=== PATIENT | female | born 1970 | race Caucasian/White ===

== ENCOUNTER → 2016-06-06 | Outpatient (CLI) | payer OTHER ==
[~2016-06-06] MED LIST: /ADVA50050; /ADVA50050 INH; /CLON1TA OR; /DULO30CA; /HALO5TAB OR; /METO25TAB PO; ADV250INH INH; ALBU17IN INH; ALBU17IN2 INH; ALLE10TA2 PO; AMLO10TA PO; AMLO5TAB2 PO; ATOR40TA PO; BUSP10TA2 OR; CITA20TA4 PO; CLON0.2T PO; COLC1TAB13 PO; COLC1TAB5 PO; DEPA500T OR; DRIS50002 PO; ESTR625TA PO; EXCETAB; EXCETAB OR; EXCETAB80 PO; FIOR1CAP PO; FURO20TA2; FURO20TA2 PO; IMIT100T; INDO25CA PO; INDO50CA PO; LASI20TA; LISI40TAB PO; LOSA100T36 PO; METO50TA2 PO; MOTR200T44 PO; NORCOTAB PO; OLAN20TA PO; OMEP40CA2 PO; OXYC1TAB23 PO; PANT40TA2 PO; PERCOCET PO; PROZ20CA OR; RANI15TA PO; SERO200T2 PO; SERT50TA PO; SING10TA31; TOPA100T8 PO; TOPI100T; TOPI200T; TRAZ100T OR; TRAZ100T4 PO; TUMS500C PO; TYLE325T5 PO; VENL37.5
[2016-06-06 09:09] LABS: BASO % 0.6 % (0.0-1.0); EOS # 0.2 K/mm3 (0.0-0.50); EOS % 3.6 % (0.0-3.0); LYMPH # 2.1 K/mm3 (1.5-4.5); LYMPH % 41.5 % (24.0-44.0); MEAN CORPUSCULAR HEMOGLOBIN 32.8 pg (27.0-33.0); MEAN CORPUSCULAR HGB CONC 34.2 g/dl (32.0-36.5); MEAN CORPUSCULAR VOLUME 95.9 fl (80.0-96.0); MONO # 0.3 K/mm3 (0.0-0.8); MONO % 5.2 % (0.0-5.0); NEUTROPHILS # 2.4 K/mm3 (1.8-7.7); RED CELL DISTRIBUTION WIDTH 12.5 % (11.5-14.5); WHITE BLOOD COUNT 5.1 K/mm3 (4.0-10.0)
[2016-06-06 09:38] LABS: VITAMIN B12 LEVEL 734 PG/ML
[2016-06-06 09:39] LABS: FOLATE > 24.0 NG/ML
[2016-06-06 09:43] LABS: ALBUMIN 4.1 GM/DL (3.2-5.2); ALBUMIN/GLOBULIN RATIO 1.08 (1.00-1.93); ALKALINE PHOSPHATASE 131 U/L (45-117); ALT/SGPT 23 U/L (12-78); ANION GAP 11 MEQ/L (8-16); AST/SGOT 17 U/L (15-37); BILIRUBIN,TOTAL 0.4 MG/DL (0.2-1.0); BLOOD UREA NITROGEN 17 MG/DL (7-18); CALCIUM LEVEL 9.4 MG/DL (8.5-10.1); CARBON DIOXIDE LEVEL 26 MEQ/L (21-32); CHLORIDE LEVEL 95 MEQ/L (98-107); CREATININE FOR GFR 1.16 MG/DL (0.55-1.02); FERRITIN 71 NG/ML (8-252); GLOMERULAR FILTRATION RATE 53.8 (>58); GLUCOSE, FASTING 85 MG/DL (70-105); POTASSIUM SERUM 3.7 MEQ/L (3.5-5.1); SODIUM LEVEL 132 MEQ/L (136-145); TOTAL PROTEIN 7.9 GM/DL (6.4-8.2)
== END ==
LOC: M LAB 08:19
PROVIDERS: ATTEND Physician Assistant Medical
DX: R42 Dizziness and giddiness (principal)

== ENCOUNTER → 2016-07-02 | Outpatient (CLI) | payer OTHER ==
[2016-07-02 11:46] LABS: BLOOD UREA NITROGEN 19 MG/DL (7-18); CREATININE FOR GFR 0.93 MG/DL (0.55-1.02); GLOMERULAR FILTRATION RATE > 60.0 (>58)
== END ==
LOC: M LAB 10:45
PROVIDERS: ATTEND Nurse Practitioner Family
DX: M54.16 Radiculopathy, lumbar region (principal)

== ENCOUNTER → 2016-09-09 | Outpatient (CLI) | payer MEDICAID ==
--- NOTE | 2016-09-09 17:24 | REP ---
Clinical: Chronic headache . Comparison: 07/25/2015 . Findings: The ventricles, sulci, and cisterns are normal in position and appearance. Orourke-white differentiation is maintained. No acute intracranial hemorrhage, mass/mass effect, pathology or trauma/injury. No evidence for acute infarction. No extra-axial fluid collection. Calvarium is intact. Paranasal sinuses and mastoid air cells are clear. Impression: Normal noncontrast head CT. No evidence for acute intracranial pathology or trauma/injury. Signed by Sebastián Zayas MD 09/09/2016 05:15 P
== END ==
LOC: M RAD 16:53
PROVIDERS: ATTEND Internal Medicine Cardiovascular Disease
DX: G44.52 New daily persistent headache (NDPH) (principal); I25.10 Atherosclerotic heart disease of native coronary artery without angina pectoris

== ENCOUNTER 2016-10-14 01:16 | Emergency (ER) | payer MEDICAID, OTHER ==
[~2016-10-14] VITALS: Ht 177.8 cm; Wt 92.7 kg
[~2016-10-14 01:16] MED LIST changes: -ATOR40TA PO; +ATOR40TA75 PO; +COLC1TAB14 PO; -COLC1TAB5 PO; -METO50TA2 PO; +METO50TA7 PO; +TOPA100T12 PO; -TOPA100T8 PO; +TRAZ-136 PO; -TRAZ100T4 PO
[2016-10-14] MEDS ORDERED: VICO10TA11 PO (01:43)
[2016-10-14] MEDS ORDERED: KETOROLAC 60 MG/2 ML VIAL (J1885) IM ONE (03:15)
[2016-10-14 04:16] VITALS: BP 188/108
--- NOTE | 2016-10-14 09:18 | REP ---
Left foot complete: 10/14/2016. Clinical history: Trauma. Findings: Four views provided. There is a small plantar calcaneal spur. There are degenerative changes at the first MTP joint and IP joints representing some minor arthritis. The tarsal bones and their articulations show minor degenerative changes at some of the dorsal articulations, particularly the talonavicular joint on the lateral view. There is a small os trigonum posterior to the talus. Talonavicular and calcaneocuboid joints otherwise unremarkable. No visible or displaced fractures. There is a dorsal spur at the neck of the talus. Impression: 1. Minor degenerative changes as described with heel spur, no known fracture. Signed by Ean Faustin MD 10/14/2016 09:15 P
--- NOTE | 2016-10-14 09:43 | REP ---
LEFT ANKLE COMPLETE: 10/14/2016. CLINICAL HISTORY: Trauma. Four views of the ankle show the mortise joint symmetric and preserved. There are some minor degenerative changes at the inferior tip of the medial malleolus. No talar dome osteochondral defect. No visible or displaced fracture or avulsion of the tibia or fibula. Subtalar joints intact. There is an os trigonum posterior to the talus as a normal finding. Heel spurs are noted. Minor degenerative changes dorsal aspect of the neck of the talus and the talonavicular joint. IMPRESSION: 1. Soft-tissue swelling about the ankle, but no visible or displaced fracture, avulsion, disruption of the mortise joint or other acute finding. There are some degenerative changes at the ankle and heel spurs noted. Signed by Ean Faustin MD 10/14/2016 09:15 P
== END 2016-10-14 04:18 | disposition home or self-care (01) ==
LOC: M ED 01:16
DX: S90.32XA Contusion of left foot, initial encounter (principal); W22.8XXA Striking against or struck by other objects, initial encounter; Y92.099 Unspecified place in other non-institutional residence as the place of occurrence of the external cause; Y93.9 Activity, unspecified; Y99.9 Unspecified external cause status; I10 Essential (primary) hypertension; K21.9 Gastro-esophageal reflux disease without esophagitis; G89.29 Other chronic pain; F17.200 Nicotine dependence, unspecified, uncomplicated; M19.072 Primary osteoarthritis, left ankle and foot; M77.32 Calcaneal spur, left foot; Z79.82 Long term (current) use of aspirin; Z79.899 Other long term (current) drug therapy; Z91.89 Other specified personal risk factors, not elsewhere classified; Z88.8 Allergy status to other drugs, medicaments and biological substances; Z88.4 Allergy status to anesthetic agent
CPT/HCPCS: 73610; 73630; 96372; 99283; J1885

== ENCOUNTER 2016-10-28 01:49 | Emergency (ER) | payer OTHER ==
[~2016-10-28] VITALS: Ht 177.8 cm; Wt 92.7 kg
[~2016-10-28 01:49] MED LIST changes: +VICO10TA11 PO
[2016-10-28] MEDS ORDERED: MORPHINE 4 MG/ML 1ML SYRINGE IV ONE (02:30)
[2016-10-28 02:38] LABS: BASO # 0.1 K/mm3 (0.0-0.2); EOS # 0.3 K/mm3 (0.0-0.50); EOS % 5.6 % (0.0-3.0); LARGE UNSTAINED CELL # 0.1 K/mm3 (0.0-0.4); LARGE UNSTAINED CELL % 2.1 % (0.0-4.0); LYMPH # 2.7 K/mm3 (1.5-4.5); LYMPH % 47.5 % (24.0-44.0); MEAN CORPUSCULAR HEMOGLOBIN 33.2 pg (27.0-33.0); MEAN CORPUSCULAR HGB CONC 33.8 g/dl (32.0-36.5); MEAN CORPUSCULAR VOLUME 98.2 fl (80.0-96.0); MONO # 0.3 K/mm3 (0.0-0.8); MONO % 5.9 % (0.0-5.0); NEUTROPHILS # 2.1 K/mm3 (1.8-7.7); NEUTROPHILS % 36.9 % (36.0-66.0); PLATELET COUNT, AUTOMATED 263 k/mm3 (150-450); RED CELL DISTRIBUTION WIDTH 12.5 % (11.5-14.5); WHITE BLOOD COUNT 5.6 K/mm3 (4.0-10.0)
[2016-10-28] MEDS ORDERED: LOSA100T36 PO (02:57)
[2016-10-28] MEDS ORDERED: ALBU17IN INH (02:57)
[2016-10-28] MEDS ORDERED: LISI40TAB PO (02:57)
[2016-10-28] MEDS ORDERED: METO1TAB87 PO (02:57)
[2016-10-28] MEDS ORDERED: SERO1TAB PO (02:57)
[2016-10-28] MEDS ORDERED: ZYRT10CA PO (02:57)
[2016-10-28] MEDS ORDERED: SING10TA32 PO (02:57)
[2016-10-28] MEDS ORDERED: LIPI20TA PO (02:57)
[2016-10-28] MEDS ORDERED: HYDR-3719 PO (02:57)
[2016-10-28] MEDS ORDERED: AMLO10TA PO (02:57)
[2016-10-28] MEDS ORDERED: ASPI81TA85 PO (03:00)
[2016-10-28] MEDS ORDERED: LASI20TA PO (03:00)
[2016-10-28] MEDS ORDERED: PLAV1TAB2 PO (03:00)
[2016-10-28] MEDS ORDERED: VITA1CAP40 PO (03:00)
[2016-10-28] MEDS ORDERED: ZOLO100T PO (03:00)
[2016-10-28] MEDS ORDERED: OMEP40CA2 PO (03:00)
[2016-10-28 03:13] LABS: ANION GAP 7 MEQ/L (8-16); BLOOD UREA NITROGEN 12 MG/DL (7-18); CALCIUM LEVEL 8.9 MG/DL (8.5-10.1); CARBON DIOXIDE LEVEL 24 MEQ/L (21-32); CHLORIDE LEVEL 111 MEQ/L (98-107); CREATININE FOR GFR 0.87 MG/DL (0.55-1.02); GLOMERULAR FILTRATION RATE > 60.0 (>58); GLUCOSE, FASTING 108 MG/DL (70-105); POTASSIUM SERUM 3.7 MEQ/L (3.5-5.1); SODIUM LEVEL 142 MEQ/L (136-145)
[2016-10-28] MEDS ORDERED: HYDROmorphone HCL 1 MG/ML SYRINGE (J1170) IV ONE (03:15)
[2016-10-28] MEDS ORDERED: hydrALAZINE INJ 20 MG/ML VIAL IV STA (03:35)
[2016-10-28] MEDS ORDERED: NITROGLYCERIN 2% OINT 1 GM *U/D* PKT TOP ONE (04:00)
[2016-10-28 05:11] VITALS: BP 172/106
--- NOTE | 2016-10-28 07:49 | REP ---
Portable chest, 03:50 a.m., single AP view, patient sitting: Comparison is 03/14/2016. The lung lyon are clear. The cardiac size is normal. The deion, mediastinum, and bony thorax are unremarkable. Impression: Negative portable chest. There is no interval change. No Signed by Zeke Zambrano MD 10/28/2016 07:40 A
--- NOTE | 2016-10-28 20:27 | ECGEPIP ---
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
== END 2016-10-28 05:24 | disposition short-term general hospital (02) ==
LOC: M ED 01:49
DX: I20.0 Unstable angina (principal); R07.9 Chest pain, unspecified; R94.31 Abnormal electrocardiogram [ECG] [EKG]; I51.9 Heart disease, unspecified; I10 Essential (primary) hypertension; F41.9 Anxiety disorder, unspecified; F32.9 Major depressive disorder, single episode, unspecified; G43.909 Migraine, unspecified, not intractable, without status migrainosus; M54.5 Low back pain; Z95.5 Presence of coronary angioplasty implant and graft; F17.200 Nicotine dependence, unspecified, uncomplicated; Z82.49 Family history of ischemic heart disease and other diseases of the circulatory system; Z79.82 Long term (current) use of aspirin; Z79.899 Other long term (current) drug therapy; Z91.040 Latex allergy status; Z88.0 Allergy status to penicillin; Z88.8 Allergy status to other drugs, medicaments and biological substances
CPT/HCPCS: 71010; 80048; 82550; 82553; 83880; 85025; 93000; 93041; 94760; 96374; 96375; 99285; J1170

== ENCOUNTER → 2016-11-21 | Outpatient (CLI) | payer OTHER ==
[~2016-11-21] MED LIST changes: +ASPI81TA85 PO; +HYDR-3719 PO; +LASI20TA PO; +LIPI20TA PO; +METO1TAB87 PO; +PLAV1TAB2 PO; +SERO1TAB PO; +SING10TA32 PO; +VITA1CAP40 PO; +ZOLO100T PO; +ZYRT10CA PO
--- NOTE | 2016-11-21 09:16 | REP ---
Clinical: Hypertension. Comparison: 02/29/2016. Technique: Orourke scale and color Doppler evaluation of the kidneys and renal vasculature using curved array transducer. Findings: The kidneys are essentially normal in contour size and echogenicity and reniform shape without hydronephrosis, nephrolithiasis, cystic or renal mass lesion. Right kidney measures 12.2 x 5.4 x 4.1 cm with extrarenal pelvis and suggestions for duplicated system. Left kidney measures 11.2 x 4.8 x 4.4 cm with suggestions for duplicated system. Bladder is incompletely distended and grossly normal by current evaluation. Color Doppler evaluation of the renal vasculature demonstrates normal main renal arterial wave patterns, velocities and renal aortic ratios. However, the intralobar arteries show early tardus-parvus wave patterns with loss of definable upstroke suggesting indirect findings related to renal hypertension. Right Kidney: Peak arterial velocity: 113 cm/sec . Renal aortic ratio: 1.1 . Resistive indices: 0.67 - 0.73. Acceleration times: Incompletely obtained . Left kidney: Peak arterial velocity: 76.1 . Renal aortic ratio: 0.7 . Resistive indices: 0.63 - 0.72. Acceleration times: Incompletely obtained . Impression: 1. Relatively normal appearance of the bilateral kidneys although duplicated collecting systems cannot be excluded. 2. While the main renal arteries and associated renal aortic ratios are normal, intrarenal arterial wave forms demonstrate tardus-parvus pattern with suspected prolonged acceleration times which may reflect indirect evidence for renal hypertension and correlation is recommended. Signed by Sebastián Zayas MD 11/21/2016 09:08 A
== END ==
LOC: M RAD 07:33
PROVIDERS: ATTEND Internal Medicine Cardiovascular Disease
DX: I10 Essential (primary) hypertension (principal)

== ENCOUNTER 2017-03-12 19:37 | Emergency (ER) | payer OTHER ==
[~2017-03-12] VITALS: Ht 177.8 cm; Wt 95.5 kg
[2017-03-12 19:46] VITALS: BP 164/105
== END 2017-03-12 21:13 | disposition left against medical advice (07) ==
LOC: M ED 19:37
DX: Z53.21 Procedure and treatment not carried out due to patient leaving prior to being seen by health care provider (principal)

== ENCOUNTER → 2017-06-02 | Outpatient (CLI) | payer OTHER ==
[2017-06-02 18:20] LABS: CHLAMYDIA DNA AMPLIFICATION NEGATIVE (NEGATIVE); GC DNA AMPLIFICATION NEGATIVE (NEGATIVE)
[2017-06-02 18:36] LABS: BASO % 0.3 % (0.0-1.0); EOS # 0.2 10^3/uL (0.0-0.50); EOS % 3.3 % (0.0-3.0); HEMATOCRIT 37.3 % (36.0-47.0); HEMOGLOBIN 12.5 g/dl (12.0-16.0); LYMPH # 2.5 10^3/uL (1.5-4.5); LYMPH % 39.7 % (24.0-44.0); MEAN CORPUSCULAR HEMOGLOBIN 32.7 pg (27.0-33.0); MEAN CORPUSCULAR HGB CONC 33.5 g/dl (32.0-36.5); MEAN CORPUSCULAR VOLUME 97.6 fl (80.0-96.0); MONO # 0.3 10^3/uL (0.0-0.8); MONO % 5.4 % (0.0-5.0); NEUTROPHILS # 3.3 10^3/uL (1.8-7.7); NEUTROPHILS % 51.3 % (36.0-66.0); PLATELET COUNT, AUTOMATED 222 10^3/uL (150-450); RED BLOOD COUNT 3.82 10^6/uL (4.00-5.40); WHITE BLOOD COUNT 6.3 10^3/uL (4.0-10.0)
[2017-06-02 18:58] LABS: ALBUMIN 3.8 GM/DL (3.2-5.2); ALBUMIN/GLOBULIN RATIO 1.06 (1.00-1.93); ALKALINE PHOSPHATASE 123 U/L (45-117); ALT/SGPT 20 U/L (12-78); ANION GAP 9 MEQ/L (8-16); AST/SGOT 14 U/L (7-37); BILIRUBIN,TOTAL 0.3 MG/DL (0.2-1.0); BLOOD UREA NITROGEN 16 MG/DL (7-18); CALCIUM LEVEL 8.6 MG/DL (8.5-10.1); CARBON DIOXIDE LEVEL 25 MEQ/L (21-32); CHLORIDE LEVEL 105 MEQ/L (98-107); CHOLESTEROL LEVEL 222 MG/DL (<200); CHOLESTEROL RISK RATIO 3.041 (<5); CREATININE FOR GFR 0.95 MG/DL (0.55-1.30); GLOMERULAR FILTRATION RATE > 60.0 (>58); GLUCOSE, FASTING 107 MG/DL (70-100); HDL CHOLESTEROL 73 MG/DL (>40); LDL CHOLESTEROL 136.6 MG/DL (<100); NON-HDL-C 149 MG/DL; POTASSIUM SERUM 3.8 MEQ/L (3.5-5.1); SODIUM LEVEL 139 MEQ/L (136-145); TOTAL PROTEIN 7.4 GM/DL (6.4-8.2); TRIGLYCERIDES LEVEL 62 MG/DL (<150)
[2017-06-04 12:33] LABS: HEPATITIS C VIRUS ABY INDEX 0.1 INDEX (<0.8)
[2017-06-04 12:34] LABS: HIV 1&2 SCREEN CENTAUR NEGATIVE (NEGATIVE)
== END ==
LOC: M WUC 11:20
DX: Z13.9 Encounter for screening, unspecified (principal); Z00.00 Encounter for general adult medical examination without abnormal findings
CPT/HCPCS: 84443

== ENCOUNTER → 2017-06-02 | Outpatient (CLI) | payer OTHER ==
[2017-06-02 18:58] LABS: ALT/SGPT 22 U/L (12-78); AST/SGOT 15 U/L (7-37); CHOLESTEROL LEVEL 225 MG/DL (<200); CHOLESTEROL RISK RATIO 3.082 (<5); CPK CREATINE PHOSPHOKINASE 113 U/L (26-192); HDL CHOLESTEROL 73 MG/DL (>40); LDL CHOLESTEROL 139.4 MG/DL (<100); NON-HDL-C 152 MG/DL; TRIGLYCERIDES LEVEL 63 MG/DL (<150)
== END ==
LOC: M WUC 11:29
DX: E78.2 Mixed hyperlipidemia (principal)
CPT/HCPCS: 82550

== ENCOUNTER → 2017-06-09 | Outpatient (CLI) | payer OTHER ==
[2017-06-09 19:46] LABS: BASO % 0.7 % (0.0-1.0); EOS # 0.2 10^3/uL (0.0-0.50); EOS % 3.1 % (0.0-3.0); HEMATOCRIT 38.7 % (36.0-47.0); HEMOGLOBIN 12.9 g/dl (12.0-16.0); IMMATURE GRANULOCYTE % 0.3 % (0-3.0); LYMPH # 2.3 10^3/uL (1.5-4.5); LYMPH % 39.3 % (24.0-44.0); MEAN CORPUSCULAR HEMOGLOBIN 32.9 pg (27.0-33.0); MEAN CORPUSCULAR HGB CONC 33.3 g/dl (32.0-36.5); MEAN CORPUSCULAR VOLUME 98.7 fl (80.0-96.0); MONO # 0.3 10^3/uL (0.0-0.8); MONO % 4.3 % (0.0-5.0); NEUTROPHILS # 3.1 10^3/uL (1.8-7.7); NEUTROPHILS % 52.3 % (36.0-66.0); PLATELET COUNT, AUTOMATED 229 10^3/uL (150-450); RED BLOOD COUNT 3.92 10^6/uL (4.00-5.40); RED CELL DISTRIBUTION WIDTH 11.9 % (11.5-14.5); WHITE BLOOD COUNT 5.8 10^3/uL (4.0-10.0)
[2017-06-09 20:05] LABS: ANION GAP 5 MEQ/L (8-16); BLOOD UREA NITROGEN 14 MG/DL (7-18); CALCIUM LEVEL 9.1 MG/DL (8.5-10.1); CARBON DIOXIDE LEVEL 28 MEQ/L (21-32); CHLORIDE LEVEL 108 MEQ/L (98-107); CREATININE FOR GFR 0.88 MG/DL (0.55-1.30); GLOMERULAR FILTRATION RATE > 60.0 (>58); GLUCOSE, FASTING 91 MG/DL (70-100); POTASSIUM SERUM 4.2 MEQ/L (3.5-5.1); SODIUM LEVEL 141 MEQ/L (136-145)
== END ==
LOC: M WUC 16:17
DX: E78.2 Mixed hyperlipidemia (principal); R06.02 Shortness of breath; I10 Essential (primary) hypertension; I21.4 Non-ST elevation (NSTEMI) myocardial infarction; Z98.61 Coronary angioplasty status
CPT/HCPCS: 80048

== ENCOUNTER → 2017-10-14 | Outpatient (CLI) | payer OTHER ==
[2017-10-14 08:26] LABS: AMORPHOUS SEDIMENT SMALL (NEGATIVE); APPEARANCE, URINE CLEAR (CLEAR); BACTERIA, URINE AUTO 1+ (NEGATIVE); BILIRUBIN, URINE AUTO NEGATIVE (NEGATIVE); BLOOD, URINE BLOOD 2+ (NEGATIVE); COLOR, URINE YELLOW (YELLOW); GLUCOSE, URINE (UA) AUTO NEGATIVE (NEGATIVE); KETONE, URINE AUTO NEGATIVE (NEGATIVE); LEUKOCYTE ESTERASE, URINE AUTO 1+ (NEGATIVE); MUCUS, URINE SMALL (NEGATIVE); NITRITE, URINE AUTO POSITIVE (NEGATIVE); PROTEIN, URINE AUTO NEGATIVE (NEGATIVE); RBC, URINE AUTO 2 /HPF (0-3); SPECIFIC GRAVITY URINE AUTO 1.009 (1.002-1.035); SQUAMOUS EPITHELIAL CELL UR AU 3 /HPF (0-6); UROBILINOGEN, URINE AUTO 0.2 mg/dL (0.0-2.0); WBC, URINE AUTO 7 /HPF (0-3)
[2017-10-14 09:05] LABS: ANION GAP 8 MEQ/L (8-16); BLOOD UREA NITROGEN 12 MG/DL (7-18); CALCIUM LEVEL 8.9 MG/DL (8.5-10.1); CARBON DIOXIDE LEVEL 29 MEQ/L (21-32); CHLORIDE LEVEL 107 MEQ/L (98-107); CREATININE FOR GFR 0.93 MG/DL (0.55-1.30); GLOMERULAR FILTRATION RATE > 60.0 (>58); GLUCOSE, FASTING 89 MG/DL (70-100); PHOSPHORUS LEVEL 4.2 MG/DL (2.5-4.9); POTASSIUM SERUM 3.9 MEQ/L (3.5-5.1); SODIUM LEVEL 144 MEQ/L (136-145)
[2017-10-14 09:06] LABS: ALBUMIN 3.8 GM/DL (3.2-5.2); CPK CREATINE PHOSPHOKINASE 127 U/L (26-192); TROPONIN I < 0.02 NG/ML (< 0.10)
[2017-10-14 09:08] LABS: CK-MB VALUE MASS 1.3 NG/ML (<3.6); MB/CK RELATIVE INDEX 1.02 (< OR =4)
== END ==
LOC: M RAD 06:24
DX: I16.1 Hypertensive emergency (principal)
CPT/HCPCS: 71046

== ENCOUNTER 2017-11-06 23:11 | Emergency (ER) | payer OTHER, MEDICAID ==
[2017-11-07 00:36] LABS: INR 0.92; PROTHROMBIN TIME 12.4 SECONDS (12.1-14.4)
[2017-11-07 00:39] LABS: BASO % 0.5 % (0.0-1.0); EOS # 0.2 10^3/uL (0.0-0.50); EOS % 2.5 % (0.0-3.0); HEMATOCRIT 37.2 % (36.0-47.0); IMMATURE GRANULOCYTE % 0.4 % (0-3.0); LYMPH # 3.8 10^3/uL (1.5-4.5); LYMPH % 48.6 % (24.0-44.0); MEAN CORPUSCULAR HEMOGLOBIN 33.2 pg (27.0-33.0); MEAN CORPUSCULAR HGB CONC 34.9 g/dl (32.0-36.5); MEAN CORPUSCULAR VOLUME 95.1 fl (80.0-96.0); MONO # 0.5 10^3/uL (0.0-0.8); MONO % 6.1 % (0.0-5.0); NEUTROPHILS # 3.2 10^3/uL (1.8-7.7); NEUTROPHILS % 41.9 % (36.0-66.0); PLATELET COUNT, AUTOMATED 222 10^3/uL (150-450); RED BLOOD COUNT 3.91 10^6/uL (4.00-5.40); RED CELL DISTRIBUTION WIDTH 11.7 % (11.5-14.5); WHITE BLOOD COUNT 7.7 10^3/uL (4.0-10.0)
[2017-11-07 00:43] LABS: ANION GAP 8 MEQ/L (8-16); BLOOD UREA NITROGEN 22 MG/DL (7-18); CALCIUM LEVEL 8.7 MG/DL (8.5-10.1); CARBON DIOXIDE LEVEL 28 MEQ/L (21-32); CHLORIDE LEVEL 104 MEQ/L (98-107); CK-MB VALUE MASS < 1.0 NG/ML (<3.6); CPK CREATINE PHOSPHOKINASE 127 U/L (26-192); CREATININE FOR GFR 1.13 MG/DL (0.55-1.30); GLOMERULAR FILTRATION RATE 55.2 (>58); GLUCOSE, FASTING 93 MG/DL (70-100); MB/CK RELATIVE INDEX 0.78 (< OR =4); POTASSIUM SERUM 3.5 MEQ/L (3.5-5.1); SODIUM LEVEL 140 MEQ/L (136-145); TROPONIN I < 0.02 NG/ML (< 0.10)
[2017-11-07] MEDS: METOCLOPRAMIDE INJ 10MG/2ML VIAL (J2765) IV (00:50)
[2017-11-07] MEDS: NS 1,000 ML IV (00:50)
[2017-11-07] MEDS: LABETALOL HCL 100 MG/20 ML VIAL IV (00:51)
[2017-11-07] MEDS: KETOROLAC 30 MG/ML VIAL (J1885) IV (01:52)
[2017-11-07 04:12] LABS: CK-MB VALUE MASS < 1.0 NG/ML (<3.6); CPK CREATINE PHOSPHOKINASE 114 U/L (26-192); MB/CK RELATIVE INDEX 0.87 (< OR =4); TROPONIN I < 0.02 NG/ML (< 0.10)
== END 2017-11-07 04:35 | disposition home or self-care (01) ==
LOC: M ED 23:11
DX: R51 Headache (principal); I10 Essential (primary) hypertension; I25.10 Atherosclerotic heart disease of native coronary artery without angina pectoris; F17.210 Nicotine dependence, cigarettes, uncomplicated
CPT/HCPCS: J1885

== ENCOUNTER 2019-08-21 11:27 | Emergency (ER) | payer MEDICAID, OTHER, SELFPAY ==
[~2019-08-21] VITALS: Ht 177.8 cm; Wt 118.2 kg
[~2019-08-21 11:27] MED LIST changes: -/ADVA50050; -/ADVA50050 INH; -/CLON1TA OR; -/DULO30CA; -/HALO5TAB OR; -/METO25TAB PO; +ADVA1AER2; +ADVA1AER2 INH; -ALLE10TA2 PO; -AMLO5TAB2 PO; +AMLO5TAB6 PO; -CITA20TA4 PO; +CITA20TA6 PO; +CLON-412 OR; +CYMB1CAP5; -DRIS50002 PO; +DRIS50003 PO; +HALO1TAB21 OR; +HYDR-3715 PO; +INDO-16 PO; -INDO25CA PO; -INDO50CA PO; +INDO50CA91 PO; -LASI20TA PO; +LASI20TA3 PO; +LISI40TA PO; +LISI40TA52 PO; -LISI40TAB PO; +LORA-753 PO; -LOSA100T36 PO; +LOSA100T50 PO; -NORCOTAB PO; -OMEP40CA2 PO; +OMEP40CA97 PO; -PANT40TA2 PO; +PANT40TA3 PO; +SERT-141 PO; -SERT50TA PO; -TRAZ-136 PO; +TRAZ-257 PO; -VITA1CAP40 PO; +VITA50005 PO
[2019-08-21] MEDS ORDERED: SERO1TAB PO (12:05)
[2019-08-21] MEDS ORDERED: HYDR25TAB PO (12:05)
[2019-08-21] MEDS ORDERED: CARV25TA PO (12:05)
[2019-08-21] MEDS ORDERED: ACET-683 PO (12:05)
[2019-08-21] MEDS ORDERED: potassium supplement PO (12:05)
[2019-08-21] MEDS ORDERED: LISI40TA PO (12:05)
[2019-08-21 12:12] LABS: BASO % 0.5 % (0.0-1.0); EOS # 0.1 10^3/uL (0.0-0.5); EOS % 1.7 % (0.0-3.0); HEMATOCRIT 39.7 % (36.0-47.0); HEMOGLOBIN 13.2 g/dl (12.0-15.5); LYMPH # 2.2 10^3/uL (1.5-5.0); LYMPH % 33.9 % (24.0-44.0); MEAN CORPUSCULAR HEMOGLOBIN 32.5 pg (27.0-33.0); MEAN CORPUSCULAR HGB CONC 33.2 g/dl (32.0-36.5); MEAN CORPUSCULAR VOLUME 97.8 fl (80.0-96.0); MONO # 0.3 10^3/uL (0.0-0.8); MONO % 4.6 % (0.0-5.0); NEUTROPHILS # 3.9 10^3/uL (1.5-8.5); NEUTROPHILS % 59.1 % (36.0-66.0); PLATELET COUNT, AUTOMATED 211 10^3/uL (150-450); RED BLOOD COUNT 4.06 10^6/uL (4.00-5.40); WHITE BLOOD COUNT 6.6 10^3/uL (4.0-10.0)
[2019-08-21 12:39] LABS: INR 1.03; PROTHROMBIN TIME 13.2 SECONDS (11.8-14.0)
[2019-08-21 12:40] LABS: PARTIAL THROMBOPLASTIN TIME 30.8 SECONDS (25.0-38.4)
[2019-08-21 12:51] LABS: ALBUMIN 3.4 GM/DL (3.2-5.2); ALT/SGPT 16 U/L (12-78); BILIRUBIN,DIRECT < 0.1 MG/DL (0.0-0.2); BILIRUBIN,TOTAL 0.2 MG/DL (0.2-1.0); BLOOD UREA NITROGEN 11 MG/DL (7-18); CALCIUM LEVEL 8.5 MG/DL (8.5-10.1); CARBON DIOXIDE LEVEL 26 MEQ/L (21-32); CHLORIDE LEVEL 109 MEQ/L (98-107); CK-MB VALUE MASS < 1.0 NG/ML (<3.6); CPK CREATINE PHOSPHOKINASE 181 U/L (26-192); CREATININE FOR GFR 0.97 MG/DL (0.55-1.30); FREE T4 0.87 NG/DL (0.76-1.46); GLOMERULAR FILTRATION RATE > 60.0 (>58); GLUCOSE, FASTING 97 MG/DL (70-100); LIPASE 67 U/L (73-393); MB/CK RELATIVE INDEX 0.55 (< OR =4); POTASSIUM SERUM 3.7 MEQ/L (3.5-5.1); SODIUM LEVEL 140 MEQ/L (136-145); THYROID STIMULATING HORMONE 0.736 uIU/ML (0.358-3.740); TOTAL PROTEIN 7.4 GM/DL (6.4-8.2); TROPONIN I < 0.02 NG/ML (< 0.10)
[2019-08-21] MEDS ORDERED: NIFEdipine 10 MG CAP PO STA (14:17)
[2019-08-21 14:27] VITALS: BP 224/107
[2019-08-21 15:40] VITALS: BP 178/87
[2019-08-21] MEDS ORDERED: IRBE300T7 PO (15:57)
[2019-08-21] MEDS ORDERED: CHLO25TA PO (15:57)
--- NOTE | 2019-08-21 16:41 | REP ---
Clinical: Chest pain Comparison: 11/07/2017 Findings: The mediastinum and cardiac silhouette are stable and within normal limits for portable technique. The lung lyon demonstrate chronic-appearing interstitial changes without acute consolidation, effusion, or pneumothorax. Skeletal structures are intact. Impression: No acute cardiopulmonary process appreciated. Electronically Signed by Sebastián Zayas MD 08/21/2019 04:33 P
--- NOTE | 2019-08-21 17:04 | REP ---
Clinical: Headache . Comparison: 11/06/2017 Technique: Axial noncontrast images from the skull base to the vertex with coronal re-formations. Findings:The ventricles, sulci, and cisterns are normal in position and appearance. Orourke-white differentiation is maintained. No acute intracranial hemorrhage, mass/mass effect, pathology or trauma/injury. No evidence for acute infarction. No extra-axial fluid collection. Calvarium is intact. Paranasal sinuses and mastoid air cells are clear. Impression:Normal noncontrast head CT. No evidence for acute intracranial pathology or trauma/injury. Electronically Signed by Sebastián Zayas MD 08/21/2019 04:55 P
--- NOTE | 2019-08-21 19:20 | ECGEPIP ---
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
== END 2019-08-21 16:15 | disposition home or self-care (01) ==
LOC: M ED 11:27
DX: R07.9 Chest pain, unspecified (principal); R51 Headache; I10 Essential (primary) hypertension; E78.5 Hyperlipidemia, unspecified; F17.200 Nicotine dependence, unspecified, uncomplicated; Z79.51 Long term (current) use of inhaled steroids; Z79.899 Other long term (current) drug therapy; Z86.79 Personal history of other diseases of the circulatory system; Z88.8 Allergy status to other drugs, medicaments and biological substances; Z91.040 Latex allergy status; Z95.5 Presence of coronary angioplasty implant and graft